=== PATIENT | male | born 1935 | race Caucasian/White ===

== ENCOUNTER 2017-04-20 06:01 | Inpatient (IN) | payer OTHER ==
[2017-04-13 13:43] LABS: HEMATOCRIT 46.3 % (42.0-52.0); HEMOGLOBIN 15.6 gm/dL (14.0-18.0); MCH 28.2 pg (26.0-34.0); MCHC 33.7 g/dL (28.0-37.0); MCV 83.5 fL (80.0-100.0); RBC 5.55 mil/uL (4.50-6.00); WBC 14.8 thou/uL (4.0-11.0)
[2017-04-13 13:51] LABS: URINE BILIRUBIN NEGATIVE (Negative); URINE BLOOD NEGATIVE (Negative); URINE COLOR YELLOW; URINE GLUCOSE-RANDOM* NEGATIVE (Negative); URINE KETONES NEGATIVE (Negative); URINE LEUKOCYTES-REFLEX NEGATIVE (Negative); URINE PROTEIN (DIPSTICK) NEGATIVE (Negative); URINE UROBILINOGEN 0.2 E.U./dl (0.2-1.0)
[2017-04-13 13:55] LABS: ALBUMIN 3.9 g/dL (3.4-5.0); CALCIUM 9.5 mg/dL (8.5-10.1); CREATININE 1.1 mg/dL (0.7-1.3); POTASSIUM 4.1 mmol/L (3.5-5.1)
[2017-04-13 14:10] LABS: PROTIME 10.3 Seconds (9.3-11.4)
[2017-04-14 02:11] LABS: GLYCOHEMOGLOBIN (HGB A1C) 6.2 % (4.8-5.6)
[~2017-04-20] VITALS: Ht 188 cm; Wt 122.5 kg
--- NOTE | ~2017-04-20 | S ---
[facility] [place] [address] SURGICAL PATH RPT PROCEDURE Name: VIC FINLEY Room #: 406-P ADM IN M.R.#: [id number] Admission: 04/20/17 Date of : 39 Discharge: Report #: [id number] Path Case #: [id number] PATHOLOGY REPORT COLLECTION DATE: 04/20/2017 RECEIVED DATE: 04/20/2017 SUBMITTING PHYS: Dr. Gregor Artis OTHER PHYS: Dr. Joselo Bundy SPECIMEN(S) RECEIVED: A.Left knee joint tissue * * * * * * * * * * * * FINAL DIAGNOSIS: A. Synovium, left knee joint tissue, biopsy: - Reactive changes including chronic inflammation, giant cells and dystrophic calcifications. - No increase in neutrophils. PATHOLOGIST: Magnolia Jackson M.D. REPORT ELECTRONICALLY SIGNED BY: Magnolia Jackson M.D. DATE/TIME: 04/21/2017 13:03 * * * * * * * * * * * * GROSS PATHOLOGY: Received fresh from the OR, labeled, Miguel A, "left knee joint tissue", are multiple fragments of red-padilla soft tissue measuring in aggregate of 4.0 x 4.0 x 0.8 cm approximately. Marble Helper section is submitted for frozen section in FSA1, this is subsequently submitted for permanent sections in A1. The unfrozen tissue is submitted for permanent section only as A2-A4. (IUV:mml; 04/20/2017) FROZEN SECTION DIAGNOSIS: (Dr. Magnolia Jackson) FSA1, synovium, left knee joint tissue, biopsy: - Reactive changes. - No definite increase in neutrophils on FS slide. - These findings are discussed with Dr. Gregor Artis and the written report is placed in the patient's chart. (IUV:mml; 04/20/2017) Testing performed by [facility] at [address], [place] [address] [address] [place] [address] SURGICAL PATH RPT PROCEDURE Name: VIC FINLEY Room #: 406-P [facility] IN .R.#: [id number] Admission: 04/20/17 Date of : 39 Discharge: Report #: [id number] Path Case #: [id number] CLINICAL HISTORY: None Provided INITIAL CPT CODE(S): A; 26787, 77606 Professional services performed by [facility] at [place] [address] [address], [place] [address] [facility] at [address] [place] [address], [facility] [address] [address]. [place] [address] PHONE: [phone] DIRECTOR: Herrera Rachel M.D. * * * END OF REPORT * * *
--- NOTE | ~2017-04-20 | EKG ---
[address] [address] ELECTROCARDIOGRAM REPORT Name: VIC FINLEY Room #: 150-5 ADM IN M.R.#: [id number] Admission: 04/20/17 Attend Phys: Gregor Artis MD Discharge: Date of : 39 Report #: [id number] THIS REPORT FOR: //name// [facility] Test Date: 2017-04-20 Test Time: 07:59:41 Pat Name: VIC FINLEY Department: Room: 150 5 Gender: M Infant Nanny: SHELLY : 1935 Requested By: Orquidea Chavez Order Number: [id number] MD: Pierre Meyers Measurements Intervals [place] Rate: 44 P: 63 RI: 192 QRS: 47 QRSD: 156 T: 1 QT: 573 QTc: 491 Interpretive Statements Sinus bradycardia Right bundle branch block No previous ECG available for comparison Electronically Signed On 04-20-2017 8:23:18 CDT by Pierre Meyers [email or web address] <ELECTRONICALLY SIGNED> By: Pierre Meyers MD, [facility] 04/20/17 0823 [id number] Pierre Meyers MD, FACC /EPI
--- NOTE | ~2017-04-20 | O ---
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 PROCEDURE: Revision left total knee arthroplasty of all 3 components. SURGEON: Gregor Artis MD CARAMEL CANDY MAKER: Lucia Pace PA-C ANESTHESIA: LMA with an adductor canal block. TOURNIQUET TIME: 140 minutes. ESTIMATED BLOOD LOSS: 100 mL. SPECIMENS: Intraoperative frozen section was taken, which showed no white cells per high power field as well as intraoperative culture was sent. CONDITION UPON LEAVING THE OPERATING ROOM: Stable. INDICATIONS FOR PROCEDURE: The patient is a 81-year-old gentleman who has had a left total knee arthroplasty that has been painful for several years. He had workup for infection that was negative. He had a bone scan showing to have increased uptake around his femoral component and we were suspicious for loosening of his femoral component causing his pain. After discussion with he and his , he elected for revision left total knee arthroplasty. DESCRIPTION OF PROCEDURE: Risks, benefits, alternatives, complications were discussed in detail with the patient including but not limited to risk of anesthesia, risk of damage to nerves, arteries, blood vessels, risk for infection, bleeding, failure of operation and need for reoperation. Informed consent was obtained from the patient. Left knee was appropriately marked in the preoperative holding area. IV Ancef was given for preoperative antibiotics. Adductor canal block was placed by Anesthesia. He was brought to the operating room and placed in the supine position on operating room table. LMA anesthesia [address] [address] OPERATIVE REPORT Name: VIC FINLEY Room #: 150-5 [facility] IN [facility].#: [id number] Admission: 04/20/17 Attend Phys: Gregor Artis MD Discharge: Date of : 39 Report #: [id number] was induced without complication. Tourniquet was placed on the left thigh. Left lower extremity was prepped and draped in normal sterile fashion. Timeout was performed properly identifying the patient and procedure as well as the instrumentation and implants. All in the operating room were in agreement. Left lower extremity was exsanguinated, tourniquet was inflated. Tourniquet time was 140 minutes total. The tourniquet was let down at 120 minutes for a minute time period and then placed backup during cementation of the components. The previous scar was used and a #10 blade was used to open the knee longitudinally. Dissection was taken down to the fascia and deep flaps were developed medially and laterally. Fresh 10 blade was used to make a medial parapatellar arthrotomy and the knee was inspected. There was normal appearing joint fluid. Cultures of this were taken. Several areas of synovium were resected and sent to pathology for intraoperative frozen section, which showed no inflammatory cells per high power field. It was decided to proceed with revision total knee arthroplasty. Medial and lateral gutters were reestablished. Osteotomes both curved, rigid and flexible osteotomes were used to dissect around the femoral component and the femoral component was removed. This came out fairly easily with minimal bone loss. Polyethylene was removed from the tibia. The tibial component was much more difficult to remove and required significant dissection around the tibia with osteotomes. The patellar button was also removed with oscillating saw. After this, the femur and tibia were sequentially reamed up to a size 15 for the tibia at which point there was good purchase of the tibial reamer. Tibial resection guide was placed and tibial resection was made. This was then sized, found to be a size 6 and the size 6 trial fit best with the 2 mm chassis inspector at the 6 o'clock position. This was reamed and punched and a size 6 tibia with a 2 mm chassis inspector at 6 o'clock position with a 15 x 160 trial stem was placed into the tibia. Attention was turned to the femur. This was reamed up to a size 18. A cleanup cut was made distally. A size 7, 4-in-1 cutting block with a 6 mm chassis inspector at the 3 o'clock position had the best fit. This was pinned in place. Anterior, posterior and chamfer cuts were made. The femoral trial was built and a size 7 femoral trial with a 6 mm chassis inspector at the 3 o'clock position with an 18 x 120 stem was placed. This was then trialed with a sequentially larger polyethylene, at which point the size 13 highly constrained poly had the best fit. A 38 mm trial patella was placed. Knee was taken through range of motion, found to be stable, found to have good balance in flexion and extension both medially and laterally. All trial components were removed. The bones were thoroughly irrigated with normal saline. A final size 6 left tibia with a 2 mm offset chassis inspector at the 6 o'clock position with a 15 x 160 stem was cemented in place using standard cementation techniques. A size 7 left Legion femur with a 6 mm chassis inspector at the 3 o'clock position with an 18 x 120 stem was cemented using standard cementation techniques. A size 38 patella was cemented in place. After the cement cured, the tourniquet was deflated. Hemostasis was obtained with Bovie cautery. Knee was thoroughly irrigated with normal saline. A periarticular injection consisting of morphine, ropivacaine and epinephrine was placed around the knee joint. A final size 13 polyethylene was placed. One gram of vancomycin was [facility] [address] [place] [address] OPERATIVE REPORT Name: VIC FINLEY Room #: 150-5 [facility] IN [facility]#: [id number] Admission: 04/20/17 Attend Phys: Gregor Artis MD Discharge: Date of : 39 Report #: [id number] placed in the knee joint. The fascia was closed with 0 Vicryl, skin was closed with 2-0 Vicryl, 3-0 Monocryl, Dermabond and JASON dressing were applied. The patient tolerated this procedure well and went to the recovery room under care of anesthesia postoperatively. By: 1323 1414 Gregor Artis MD /nt
[~2017-04-20 06:01] MED LIST: CITALOPRAM HBR40 MG PO; ENALAPRIL PO; HYDROCHLOROTHIA25 M2 PO; KLOR-CON PO; LOPRESSOR50 PO; NOVOLIN R100 UNIT/3; PRAVACHOL40 MG PO; SINEMET 25-1001 EAC1 PO; XANAX1 MG PO
[2017-04-20 08:00] VITALS: BP 119/86
[2017-04-20 15:00] VITALS: BP 171/54
[2017-04-20 15:20] VITALS: BP 148/55
[2017-04-20 16:00] VITALS: BP 160/53
[2017-04-20 17:00] VITALS: BP 162/62
[2017-04-20 18:00] VITALS: BP 166/55
[2017-04-21 03:58] VITALS: BP 128/40
[2017-04-21 04:06] LABS: HEMATOCRIT 36.1 % (42.0-52.0); HEMOGLOBIN 11.9 gm/dL (14.0-18.0); MCH 27.9 pg (26.0-34.0); MCHC 33.1 g/dL (28.0-37.0); MCV 84.2 fL (80.0-100.0); RBC 4.28 mil/uL (4.50-6.00); RDW 15.1 % (10.5-14.5); WBC 15.8 thou/uL (4.0-11.0)
[2017-04-21 07:40] VITALS: BP 135/47
[2017-04-21 16:00] VITALS: BP 137/48
[2017-04-21 20:48] VITALS: BP 166/55
[2017-04-22 03:23] VITALS: BP 150/49
[2017-04-22 05:55] LABS: HEMATOCRIT 33.8 % (42.0-52.0); MCH 27.8 pg (26.0-34.0); MCHC 32.6 g/dL (28.0-37.0); MCV 85.3 fL (80.0-100.0); RBC 3.96 mil/uL (4.50-6.00); RDW 15.4 % (10.5-14.5); WBC 16.2 thou/uL (4.0-11.0)
[2017-04-22 07:27] VITALS: BP 110/46
[2017-04-22 15:46] VITALS: BP 121/52
[2017-04-22 20:00] VITALS: BP 144/68
[2017-04-23 04:00] VITALS: BP 127/50
[2017-04-23 04:44] LABS: HEMATOCRIT 30.3 % (42.0-52.0); MCH 27.7 pg (26.0-34.0); MCHC 32.9 g/dL (28.0-37.0); MCV 84.2 fL (80.0-100.0); RBC 3.59 mil/uL (4.50-6.00); RDW 14.6 % (10.5-14.5); WBC 13.7 thou/uL (4.0-11.0)
[2017-04-23 07:36] VITALS: BP 143/43
[2017-04-23 08:00] VITALS: BP 143/43
[2017-04-23 18:41] VITALS: BP 134/46
[2017-04-23 19:04] VITALS: BP 158/51
[2017-04-24 03:51] VITALS: BP 124/78
[2017-04-24 05:07] LABS: BASOPHILS 0.9 % (0.0-2.0); EOSINOPHILS 2.3 % (0.0-3.0); HEMATOCRIT 30.8 % (42.0-52.0); HEMOGLOBIN 10.3 gm/dL (14.0-18.0); MCH 28.1 pg (26.0-34.0); MCHC 33.6 g/dL (28.0-37.0); MCV 83.8 fL (80.0-100.0); MONOCYTES 8.9 % (1.0-8.0); PLATELET COUNT 183 thou/uL (150-400); POLYS 71.9 % (36.0-66.0); RBC 3.67 mil/uL (4.50-6.00); RDW 15.2 % (10.5-14.5); WBC 12.6 thou/uL (4.0-11.0)
[2017-04-24 05:14] LABS: MANUAL DIFF NO
[2017-04-24 05:18] LABS: CALCIUM 8.1 mg/dL (8.5-10.1); CREATININE 1.1 mg/dL (0.7-1.3)
[2017-04-24 08:07] VITALS: BP 136/48
[2017-04-24 15:48] VITALS: BP 141/52
[2017-04-24 19:14] VITALS: BP 175/67
[2017-04-25 04:25] VITALS: BP 150/64
[2017-04-25 07:42] VITALS: BP 154/62
[2017-04-25 10:46] VITALS: BP 154/62
[2017-04-25] MEDS ORDERED: CVS BUFFERED A325 MG PO (10:52)
[2017-04-25] MEDS ORDERED: NEURONTIN 300300 M1 PO (10:52)
[2017-04-25] MEDS ORDERED: PERCOCET PO (10:52)
[2017-04-25 11:44] VITALS: BP 154/62
[2017-04-25 11:53] VITALS: BP 146/58
== END 2017-04-25 12:10 | disposition home health service (06) | DRG 468 ==
LOC: 4N 06:01 → TBA 06:01 → PRE 07:36 → 4N 15:13 → ENTRNSPT 04-25 11:59 → EDTRNSPTSTS 04-25 12:07 → 4N 04-25 12:10
PROVIDERS: Family Medicine; Orthopaedic Surgery
PROC: 0SRD0J9 Replacement of Left Knee Joint with Synthetic Substitute, Cemented, Open Approach (ICD-10-PCS; principal; 2017-04-20)
PROC: 0SPD0JZ Removal of Synthetic Substitute from Left Knee Joint, Open Approach (ICD-10-PCS; 2017-04-20)
DX: T84.033A Mechanical loosening of internal left knee prosthetic joint, initial encounter (principal); Y83.9 Surgical procedure, unspecified as the cause of abnormal reaction of the patient, or of later complication, without mention of misadventure at the time of the procedure; E11.9 Type 2 diabetes mellitus without complications; F32.9 Major depressive disorder, single episode, unspecified; G25.81 Restless legs syndrome; K59.00 Constipation, unspecified; Y92.89 Other specified places as the place of occurrence of the external cause; Z79.4 Long term (current) use of insulin
CPT/HCPCS: 10790; 50010; 50101; 50415; 50612; 50954; 51130; 51225; 51771; 53000; 53078; 54118; 55375; 56527; 56528; 57095; 62110; 62900; 64041; 70005

== ENCOUNTER 2017-04-30 11:25 | Emergency (ER) | payer OTHER ==
[~2017-04-30] VITALS: Ht 188 cm; Wt 121.6 kg
[~2017-04-30 11:25] MED LIST changes: +CVS BUFFERED A325 MG PO; +NEURONTIN 300300 M1 PO; +PERCOCET PO
[2017-04-30] MEDS ORDERED: CIPRO500 MG PO (11:52)
[2017-04-30] MEDS ORDERED: ASA5UEC PO (11:53)
[2017-04-30] MEDS ORDERED: PHILLIPS' LAXA100 MG PO (11:54)
== END 2017-04-30 13:35 | disposition home or self-care (01) ==
LOC: ER 11:25
DX: M96.830 Postprocedural hemorrhage of a musculoskeletal structure following a musculoskeletal system procedure (principal); E11.9 Type 2 diabetes mellitus without complications; F32.9 Major depressive disorder, single episode, unspecified; Z85.46 Personal history of malignant neoplasm of prostate; G47.30 Sleep apnea, unspecified; Z79.4 Long term (current) use of insulin; Z96.653 Presence of artificial knee joint, bilateral; Z90.49 Acquired absence of other specified parts of digestive tract; Z88.6 Allergy status to analgesic agent; Y83.9 Surgical procedure, unspecified as the cause of abnormal reaction of the patient, or of later complication, without mention of misadventure at the time of the procedure; Y92.89 Other specified places as the place of occurrence of the external cause

== ENCOUNTER 2017-05-01 12:13 | Inpatient (IN) | payer OTHER ==
[~2017-05-01] VITALS: Ht 188 cm; Wt 119.7 kg
--- NOTE | ~2017-05-01 | O ---
[facility] [place] [address] OPERATIVE REPORT Name: VIC FINLEY Room #: 412-P [facility] IN M.R.#: [id number] Admission: 05/01/17 Attend Phys: Gregor Artis MD Discharge: Date of : 39 Report #: [id number] THIS REPORT FOR: //name// CC: Joselo Artis DATE OF SERVICE: 05/01/2017 PREOPERATIVE DIAGNOSIS: Left knee postoperative hematoma. POSTOPERATIVE DIAGNOSIS: Left knee postoperative hematoma. PROCEDURE: Evacuation of left knee hematoma. SURGEON: Gregor Artis MD. GROCERY CASHIER: REX Bhakta. INDICATION FOR ASSISTANCE: Extensive retraction and manipulation of the knee was required during the case which was afforded to me by my casting assistant. ANESTHESIA: LMA. ESTIMATED BLOOD LOSS: 20 mL. COMPLICATIONS: None. SPECIMENS: Cultures of the hematoma were taken and sent. CONDITION UPON LEAVING THE OPERATIVE ROOM: Stable. INDICATIONS FOR PROCEDURE: The patient is a 81-year-old gentleman who is about 10 days out from a revision left total knee arthroplasty. He started having drainage from his anterior wound that was bloody in nature and this has continued to drain over the past 5 days or so. He was seen in the office today and it was decided that he likely had a hematoma and after discussion with he and his , we elected to bring him back to the operating room for evacuation of the knee hematoma. DESCRIPTION OF PROCEDURE: Risks, benefits, alternatives, complications were discussed in detail with the patient including but not limited to risk of anesthesia, risk of damage to nerves, arteries, blood vessels, risk for infection, bleeding, risk for continued knee pain, reaccumulation of hematoma and need for reoperation. Informed consent was obtained from the patient. Left knee was appropriately marked in the preoperative holding area. IV vancomycin was given for preoperative antibiotics. He was brought to the operating room [address] [address] OPERATIVE REPORT Name: MALIAVIC Brien Room #: 412-P [facility] IN ..#: [id number] Admission: 05/01/17 Attend Phys: Gregor Artis MD Discharge: Date of : 39 Report #: [id number] and placed in supine position on operating room table. LMA anesthesia was induced without complication. Tourniquet was placed on the left thigh. Left lower extremity was prepped and draped in normal sterile fashion. Timeout was performed properly identifying the patient and procedure as well as the instrumentation. All in the operating room were in agreement. The previous incision was then opened with a 10 blade. Upon entering the deep subcutaneous tissue, there was noted to be a large hematoma that was suctioned out and evacuated. Cultures of this layer were taken and sent. The fascial closure was then inspected and found to be still intact. It was decided to leave the fascial layer alone and not disrupt the knee replacement itself. The fascial layer was then thoroughly irrigated with normal saline using pulse lavage and the skin was closed with 2-0 Vicryl and 3-0 nylon and a Prevena dressing was applied. The patient tolerated this procedure well and went to the recovery room under the care of anesthesia postoperatively. <ELECTRONICALLY SIGNED> By: Gregor Artis MD 05/02/17 0721 [id number] [id number] Gregor Artis MD /nt
[~2017-05-01 12:13] MED LIST changes: +ASA5UEC PO; +CIPRO500 MG PO; +PHILLIPS' LAXA100 MG PO
[2017-05-01 13:33] LABS: HEMATOCRIT 34.8 % (42.0-52.0); MCH 26.6 pg (26.0-34.0); MCHC 31.6 g/dL (28.0-37.0); MCV 84.2 fL (80.0-100.0); RBC 4.14 mil/uL (4.50-6.00); WBC 19.8 thou/uL (4.0-11.0)
[2017-05-01 13:43] LABS: CALCIUM 8.5 mg/dL (8.5-10.1); CREATININE 1.1 mg/dL (0.7-1.3); POTASSIUM 4.5 mmol/L (3.5-5.1)
[2017-05-01 13:48] LABS: APTT 28.6 Seconds (24.5-32.8); INR 1.1; PROTIME 11.3 Seconds (9.3-11.4)
[2017-05-01 16:15] VITALS: BP 135/55
[2017-05-01 20:00] VITALS: BP 148/74
[2017-05-01 20:30] VITALS: BP 173/79
[2017-05-01 21:00] VITALS: BP 151/73
[2017-05-01 21:30] VITALS: BP 156/64
[2017-05-01 22:00] VITALS: BP 137/66
[2017-05-02 00:39] VITALS: BP 125/70
[2017-05-02 04:26] VITALS: BP 131/59
[2017-05-02 06:32] LABS: HEMATOCRIT 31.5 % (42.0-52.0); MCH 26.7 pg (26.0-34.0); MCHC 31.7 g/dL (28.0-37.0); MCV 84.2 fL (80.0-100.0); RBC 3.74 mil/uL (4.50-6.00); RDW 15.5 % (10.5-14.5); WBC 14.5 thou/uL (4.0-11.0)
[2017-05-02 08:00] VITALS: BP 152/44
[2017-05-02 10:01] VITALS: BP 152/44
[2017-05-02 10:05] VITALS: BP 152/44
== END 2017-05-02 10:55 | disposition home health service (06) | DRG 909 ==
LOC: 4N 12:13 → TBA 12:13 → 4N 20:35 → ENTRNSPT 05-02 10:50 → EDTRNSPTSTS 05-02 10:52 → 4N 05-02 10:55
PROVIDERS: Orthopaedic Surgery
PROC: 0S9D0ZZ Drainage of Left Knee Joint, Open Approach (ICD-10-PCS; principal; 2017-05-01)
DX: M96.841 Postprocedural hematoma of a musculoskeletal structure following other procedure (principal); Y83.8 Other surgical procedures as the cause of abnormal reaction of the patient, or of later complication, without mention of misadventure at the time of the procedure; E11.9 Type 2 diabetes mellitus without complications; I10 Essential (primary) hypertension; F32.9 Major depressive disorder, single episode, unspecified; E66.9 Obesity, unspecified; G25.81 Restless legs syndrome; Z96.653 Presence of artificial knee joint, bilateral; Z87.81 Personal history of (healed) traumatic fracture; Z68.33 Body mass index [BMI] 33.0-33.9, adult; Z91.81 History of falling; Z85.46 Personal history of malignant neoplasm of prostate; Z98.1 Arthrodesis status; Z90.49 Acquired absence of other specified parts of digestive tract; Z90.79 Acquired absence of other genital organ(s); Z98.42 Cataract extraction status, left eye; Z98.41 Cataract extraction status, right eye
CPT/HCPCS: 10790; 50010; 50101; 50415; 50953; 50954; 51771; 53078; 56527; 56528; 57095; 62110; 62900; 70005